=== PATIENT | female | born 1945 | race Caucasian/White ===

== ENCOUNTER 2018-01-18 21:22 | Emergency (ER) | payer MEDICARE, OTHER ==
[~2018-01-18] VITALS: Ht 154.9 cm; Wt 65.8 kg
[~2018-01-18 21:22] MED LIST: ACYC800 PO; AMIT25 PO; BUPR150ER PO; CONESTTC VAG; DULO60 PO; Multivitamin1 EAC1 PO; Synthroid25 MCG PO
== END 2018-01-19 00:37 | disposition home or self-care (01) ==
LOC: ER 21:22
DX: S09.90XA Unspecified injury of head, initial encounter (principal); S70.11XA Contusion of right thigh, initial encounter; M25.571 Pain in right ankle and joints of right foot; E03.9 Hypothyroidism, unspecified; Z88.5 Allergy status to narcotic agent; Z79.899 Other long term (current) drug therapy; W55.12XA Struck by horse, initial encounter
CPT/HCPCS: 70450; 72125; 73600; 99284